=== PATIENT | female | born 1980 | race Caucasian/White ===

== ENCOUNTER → 2018-11-19 06:09 | Day surgery (SDC) | payer OTHER ==
[~2018-11-19 06:09] MED LIST: Buffered Lidocaine 1% SYRIN* 1 ML/SYRINGE INTRADERM ONE; Bupivacaine 0.5%* 50 ML VIAL ONE; Dexamethasone IV* 4 MG/ML 1 ML (4 MG) IV SLOW PU ONE; Dexamethasone IV* 4 MG/ML 1 ML (4 MG) ONE; Famotidine IV* 10 MG/ML 2 ML (20 mg) IV ONE; Famotidine IV* 10 MG/ML 2 ML (20 mg) ONE; Lactated Ringers 1000 ML Bag* 1,000 ML IV SCH; Midazolam* 1 MG/ML 2 ML VIAL (2 MG) ONE; Naloxone* 0.4 MG/ML 1 ML VIAL IV PRN; Propofol* 10 MG/ML 20 ML BTL ONE; fentaNYL* 50 MCG/ML 2 ML VIAL (100 MCG VIAL) ONE
[2018-11-19 09:29] VITALS: BP 146/98
--- NOTE | 2018-11-19 10:46 | OP ---
OPERATIVE REPORT: DATE OF OPERATION: 11/19/18. DATE OF : 84. SURGEON: Dar Clarke MD. INVOICING SPECIALIST: LETHA Nova. ANESTHESIOLOGIST: Dr. Eldridge. ANESTHESIA: Local MAC. PRE-OP DIAGNOSES: Persistent left index finger catching and symptomatic nodule at the A1 taya of t he left index finger; status post prior left index trigger release, not quite a year ago. POST-OP DIAGNOSES: OPERATIVE PROCEDURE: 1. Revision left index finger trigger finger release with release of A1 taya. 2. Debridement of partial tendon laceration and scarred nodule of tendon from the left index finger FDS tendon with the excision of a tendon slip. INDICATIONS: Ramila is 38. She had the aforementioned condition which was very symptomatic to every time the nodule with catch on the A1 taya. We talked about her treatment and risks and benefits. She wanted to proceed. ESTIMATED BLOOD LOSS: 2 mL. COMPLICATIONS: None. FINDINGS: See above and below. DESCRIPTION OF PROCEDURE: Ramila was seen in the preoperative folding area. The correct side, site, and procedure were identified. We came back to the operative room where the arm was prepped and karan ped in the usual fashion and a time-out was performed. I had infiltrated the operative area with 0.2 5% Marcaine. The arm was exsanguinated with an Esmarch and the tourniquet inflated to 250 mmHg. I went ahead and made a V-shaped incision over the A1 taya. This was an ulnarly based flap that wa s raised right off the tendon sheath. Care was taken to preserve the digital nerves. The tendon she ath did look scarred and looked like it had been released previously but had healed back. I went ahe ad and incised the A1 taya along the course of the tendon longitudinally along the radial third. T he release was completed distally and proximally with the tenotomy scissors. Immediately upon releas ing the A1 taya, I noticed a partially lacerated FDS tendon with an associated balled-up portion of the scarred FDS tendon. I went ahead and took my Poarch blade and debrided the scarred portion of the FDS tendon and took adrian t together with the slip of the tendon proximally and bevelled up proximally to a nice smooth edge. Ultimately I ended up debriding about 20% to 30% of the tendon. It was just under the A1 taya just prior to the bifurcation of the tendon. I went ahead and bevelled it up distally to taking that por tion of the radial band, but leaving the majority of the radial slip of the FDS tendon. Once I had ta christina them back to nice clean edges, I had her flex and extend the finger multiple times. There was no more catching. Everything was looking good; I did not think that we need to do anything further. S o, I irrigated out the wounds. Skin was closed with 4-0 nylon suture. Soft dressings were applied an d she was taken to the recovery room in stable condition. [id number]/[facility] #: [id number]
== END | disposition home or self-care (01) ==
LOC: OR 06:09
PROVIDERS: ATTEND Orthopaedic Surgery Hand Surgery
DX: M65.322 Trigger finger, left index finger (principal); I10 Essential (primary) hypertension; E78.5 Hyperlipidemia, unspecified; Z87.891 Personal history of nicotine dependence; G47.33 Obstructive sleep apnea (adult) (pediatric); Z68.42 Body mass index [BMI] 45.0-49.9, adult; M19.90 Unspecified osteoarthritis, unspecified site; F41.8 Other specified anxiety disorders
CPT/HCPCS: 81025; J1100; J2250; J2704; J3010